=== PATIENT | male | born 1950 | race Caucasian/White ===

== ENCOUNTER 2023-11-26 06:05 | Observation (INO) ==
[~2023-11-26 06:05] MED LIST: Metoclopramide 5 MG/ML VIAL (10 mg) IV PRN; NS 0.45% 1000 ml BAG 1,000 ML IV SCH; Naloxone 0.4 mg VIAL 0.4 mg/ml 1 ml VIAL IV PRN; Ondansetron 4 mg VIAL 2 MG/ML 2 ml VIAL IV PRN; fentaNYL 100 mcg/2 ml 50 MCG/ML VIAL IV PRN
[2023-11-26] MEDS ORDERED: cefTRIAXone 2 gm/50 mL D5W 2 GM/50 ML BAG IV ONE (06:42)
[2023-11-26 07:08] LABS: Rapid COVID-19 Molecular Undetected (Undetected)
[2023-11-26] MEDS ORDERED: Midazolam 2 mg/2 ml VIAL 1 mg/ml 2 ml VIAL (2 mg) ONE (07:23)
[2023-11-26] MEDS ORDERED: Lidocaine 2% PF 5 ML VIAL ONE (07:51)
[2023-11-26] MEDS ORDERED: Glycopyrrolate IV 0.2 MG/ML 1 ML VIAL ONE (07:55)
[2023-11-26] MEDS: NS 0.9% 1000 ml BAG 1,000 ML IV SCH (12:40)
[2023-11-26] MEDS ORDERED: Lidocaine 2% JELLY 6 ML Topical TOPICAL PRN (12:49)
[2023-11-26] MEDS: Scopolamine 1 mg/72hr PATCH TRANSDERM ONE (14:24)
[2023-11-26] MEDS: Lactated Ringers 1000 ml BAG 1,000 ML IV SCH (14:27)
[2023-11-26] MEDS ORDERED: Benzocaine/Menthol LOZ MT PRN (15:41)
[2023-11-26] MEDS: Acetaminophen IV 1 GM/100ML 1,000 MG/100 ML BAG IV ONE (16:26)
[2023-11-26] MEDS: Buffered Lidocaine 1% SYRIN 1 ml INTRADERM ONE (16:27)
[2023-11-26] MEDS: VYZULTA BOTH EYES SCH (21:35)
[2023-11-27] MEDS: CEFTRIAXONE 1 GM IVPB ONE (06:54)
[2023-11-27] MEDS ORDERED: cefTRIAXone 1 gm/50 mL D5W 1 GM/50 ML BAG IV ONE (07:00)
[2023-11-27] MEDS: oxyCODONE/Acetamin 5/325 mg TAB PO PRN (07:00)
[2023-11-27 09:44] LABS: Calcium 8.8 mg/dL (8.6-10.3); Creatinine, Serum 0.94 mg/dL (0.67-1.17); Potassium 4.1 mmol/L (3.5-5.0); eGFR CKD-EPI 86.1 (>60)
[2023-11-27] MEDS: VITAMIN A PO SCH (09:55)
[2023-11-27] MEDS: Timolol 0.25% OPHTH.SOLN BTL BOTH EYES SCH (09:58)
[2023-11-27] MEDS: NS 0.9% 1000 ml BAG 1,000 ML IV ONE (11:50)
[2023-11-27 12:16] LABS: ABS Basophils 0.1 10^3/uL (0.0-0.1); ABS Lymphocytes 1.1 10^3/uL (1.0-4.8); ABS Monocytes 0.9 10^3/uL (0.0-1.1); ABS Neutrophils 7.6 10^3/uL (1.5-7.6); Eosinophil % 0.5 %; Hematocrit 37.6 % (38-53); Hemoglobin 12.6 g/dL (13.2-16.3); Lymphocyte % 10.9 %; Mean Corpuscular Hemoglobin 30.6 pg (27-33); Mean Corpuscular Hgb Conc 33.6 g/dL (31-36); Mean Platelet Volume 9.6 fL (7.5-11.2); Platelet Count 245 10^3/uL (150-450); Red Blood Count 4.13 10^6/uL (4.06-5.63); Red Cell Distribution Width 13.6 % (12-17); White Blood Count 9.7 10^3/uL (3.6-10.2)
[2023-11-27 12:43] LABS: Calcium 8.4 mg/dL (8.6-10.3); Creatinine, Serum 1.02 mg/dL (0.67-1.17); Potassium 4.1 mmol/L (3.5-5.0); eGFR CKD-EPI 78.1 (>60)
[2023-11-27] MEDS: NS 0.9% 1000 ml BAG 1,000 ML IV SCH (18:06)
[2023-11-28] MEDS: oxyCODONE/Acetamin 5/325 mg TAB PO PRN (02:45)
[2023-11-28] MEDS: Sulfur Hexaflouride MICROSPHR 25 MG VIAL IV ONE (10:35)
[2023-11-28 11:41] LABS: Body Fluid Appearance Cloudy; Body Fluid Color Yellow; Body Fluid Source Synovial Fluid
[2023-11-28 11:52] LABS: Body Fluid Total Nucleated 8765 /mcL
[2023-11-28] MEDS ORDERED: Polyethylene Glycol 3350 17 GM PACKET PO PRN (12:28)
[2023-11-28 12:40] LABS: Body Fluid Mono 3 %; Body Fluid NRBC 2; Body Fluid Total Cells Counted 200
[2023-11-29 10:11] VITALS: BP 124/58
[2023-12-03 12:04] LABS: B. burgdorferi PCR Negative (Negative); B. garinii/B. afzellii PCR Negative (Negative)
== END 2023-11-29 14:05 | disposition home or self-care (01) ==
LOC: OR 06:05 → SSU 06:05
PROVIDERS: ADMIT Urology; ATTEND Hospitalist